=== PATIENT | male | born 1990 | race African-American/Black ===

== ENCOUNTER 2018-12-23 23:02 | Emergency (ER) | payer SELFPAY ==
[~2018-12-23] VITALS: Ht 172.7 cm; Wt 75.0 kg
[2018-12-24] MEDS ORDERED: IBUPROFEN 800MG TABLET PO ONE (00:15)
[2018-12-24 03:15] VITALS: BP 129/78
== END 2018-12-24 03:24 | disposition home or self-care (01) ==
LOC: ER 23:02
DX: S39.012A Strain of muscle, fascia and tendon of lower back, initial encounter (principal); S29.012A Strain of muscle and tendon of back wall of thorax, initial encounter; S53.402A Unspecified sprain of left elbow, initial encounter; R42 Dizziness and giddiness; R03.0 Elevated blood-pressure reading, without diagnosis of hypertension; V73.6XXA Passenger on bus injured in collision with car, pick-up truck or van in traffic accident, initial encounter; Y93.89 Activity, other specified; Y92.488 Other paved roadways as the place of occurrence of the external cause
CPT/HCPCS: 72070; 72100; 99283